=== PATIENT | female | born 1990 | race Caucasian/White ===

== ENCOUNTER 2016-10-08 10:34 | Inpatient (IN) | payer OTHER ==
[~2016-10-08] VITALS: Ht 170.2 cm; Wt 88.9 kg
[2016-10-11] MEDS ORDERED: Methylergonovine 0.2 mg/mL Inj IM PRN ×2 (07:45→22:35)
[2016-10-11] MEDS ORDERED: Hemorrhage Kit, Post Partum XX ONE ×2 (07:45→22:35)
[2016-10-11] MEDS ORDERED: Oxytocin 10 Unit/mL Inj IM PRN ×2 (07:45→22:35)
[2016-10-11] MEDS ORDERED: Carboprost 250 mCg/mL Inj IM PRN ×2 (07:45→22:35)
[2016-10-11] MEDS ORDERED: Oxytocin 30 Units/500 mL LR 30 UNITS in IV Premix 1 EACH IV PRN ×2 (07:45→22:35)
[2016-10-11] MEDS ORDERED: Sodium Chloride LOK Flush 10 mL Syringe IVFLUSH PRN ×2 (07:45→22:35)
[2016-10-11] MEDS ORDERED: Misoprostol 25 mCg/0.25 Tablet VAGINAL ONE (09:11)
[2016-10-11] MEDS: Lactated Ringer's 1,000 ML IV PRN ×2 (09:23→19:18)
[2016-10-11 09:43] LABS: Mean Corpuscular Hemoglobin 30.5 pg (27.0-35.0); Mean Corpuscular Volume 90.4 fL (81-100)
--- NOTE | 2016-10-11 14:48 | PCM.HPOB ---
Subjective Date of Service: Oct 11, 2016 Referring Provider: Admitting Physician: Jarred Moore MD Primary Care Physician: Nopcp Attending Physician: Jarred Moore MD Chief Complaint Induction of labor 41 weeks 2 days History of Present History of Present Illness patient is a 25 y.o. F presents for induction of labor at 41 weeks 2 days. Patient has past history of, Rubella non-immune vaccinate post , Rh negative given Rhogam 07/12/16, poorly controlled asthma OB History: (1), Para (0) Past Medical History Obstetrical History: patient is a 25 y.o. F presents for induction of labor at 41 weeks 2 days. Patient has past history of, Rubella non-immune vaccinate post , Rh negative given Rhogam 07/12/16, poorly controlled asthma BPP normal US single nuchal chord, placenta anterior without previa Hep C negative, HIV negative, GBS negative Rubella non immune Varicella immune Gynecologic History: history of UTI in Medical History: uncontrolled asthma Surgical History: none Hx Tobacco Use: No Hx Alcohol Use: No Hx Substance Use: No Past Family History Living Arrangement: with Family Genetic Screening/Counseling Genetic Screening/Counseling declined by pt Review of Systems Constitutional: Y: Change of appitite, Chills, Dizziness Eyes: Denies: Blurred Vision, Double Vision ENT: Denies: Ear Discharge, Ear Pain, Nasal Congestion Cardiovascular: Denies: Chest Pain, Edema Respiratory: Reports: SOB with Exertion, Wheezing, Denies: Cough, Pleuritic Chest Pain Gastrointestinal: Denies: Abdominal Pain, Epigastric pain, Heartburn, Nausea, Vomiting Genitourinary: Denies: Dysuria, Hematuria, Nocturia Musculoskeletal: Denies: Redness, Swelling Skin/Breasts: Denies: Bruising, Discharge Hematologic: Denies: Abnormal bleeding, Adenopathy Allergy Coded Allergies: No Known Allergies (Unverified , 09/27/16) Exam Vital Signs P 76 Bp 116/16 R 14 O2 98% T 98F Exam -3 station Vertex position heat tracing shows HR 130-145, early deceleration with moderate variability and mod-strong contractions, reassuring Constitutional: Well-developed, Well-nourished HEENT: Atraumatic, PERRLA, EOMI Lungs: Clear to Auscultation, Clear to Percussion Heart: Exam Unremarkable, Regular Rate/Rhythm, Normal S1, Normal S2 Abdomen: Gravid Extremities: Pulses Palpable x4, Warm, No Edema Neurological/Psychiatric: Alert, Oriented X3 Neuro: Grossly Neurologically Intact Additional Information Gong score 8 Labs/Diagnostics Labs Laboratory Tests 72 Hours Test 10/11/16 09:32 White Blood Count 10.1th/mm3 (3.8-10.1) Red Blood Count 4.46mil/mm3 (3.90-5.20) Hemoglobin 13.6g/dL (12.0-15.6) Hematocrit 40.3% (35.0-46.0) Mean Corpuscular Volume 90.4fL (81-100) Mean Corpuscular Hemoglobin 30.5pg (27.0-35.0) Mean Corpuscular Hemoglobin Concent 33.7% (32.0-37.0) Red Cell Distribution Width 14.1% (12.3-15.4) Platelet Count 175bil/L (150-400) Ultra Sound 07/30/16 Single live intrauterine Good cardiac outflow tracts visualized Single looped nuchal Placenta anterior without previa Maternal Blood Type: A Hx Rho(D) Immune Globulin: No Group B Strep Results: Negative Previous with GBS: Unknown Rubella: Non-Immune OB Intrapartum Assessment/Plan Assessment 25 y.o. F presents for induction of labor at 41 wk and two days gong score 8 dilated 5 cm 100 % effacement and -1 station. Problems: (1) Qualifiers: Weeks of gestation: 41 weeks Qualified Code: Z3A.41 - 41 weeks gestation of Plan: Gong score of 8 amenable to induction with Pitocin Start Pitocin increase per protocol Start IVF LR 100 mls/hr Order CBC, CMP, NPO Vitals Q 4 Start Tocometer immunize for rubella post Status: Acute ICD Code: Z33.1 Pain Evaluation: Adequate Pain Control Attending Statement Patient admitted for induction of labor, she is doing well this AM. Single dose of cytotec given with spontaneous rupture and dilation to 5cm. Continue expectant management, pitocin as needed. Will vaccinate w/ MMR PP, Rhogam eval DAVINA YI DO Oct 11, 2016 14:47 Daniela Topete MD Oct 13, 2016 16:26
[2016-10-11] MEDS ORDERED: Lactated Ringer's 1,000 ML IV SCH (22:31)
[2016-10-11] MEDS ORDERED: LANOlin HPA 7 Gm Ointment TOPICAL PRN (22:35)
[2016-10-11] MEDS ORDERED: oxyCODONE-Acetamin 5-325 mg Tablet PO PRN (22:35)
[2016-10-11] MEDS ORDERED: hydrOXYzine Pamoate 25 mg Capsule PO PRN (22:35)
[2016-10-11] MEDS ORDERED: Acetaminophen IV 1,000 MG in IV Premix 1 EACH IV PRN (22:35)
[2016-10-11] MEDS ORDERED: Measles-Mumps-Rubella Vaccine 0.5 mL Inj SUBQ ONE (22:35)
[2016-10-12] MEDS ORDERED: Lactated Ringer's 1,000 ML IV SCH (00:30)
[2016-10-12] MEDS ORDERED: Oxytocin 30 Units/500 mL LR 30 UNITS in IV Premix 1 EACH IV PRN ×2 (00:30→00:35)
[2016-10-12] MEDS ORDERED: Oxytocin 10 Unit/mL Inj IM PRN (00:30)
[2016-10-12] MEDS ORDERED: Methylergonovine 0.2 mg/mL Inj IM PRN (00:30)
[2016-10-12] MEDS ORDERED: oxyCODONE-Acetamin 5-325 mg Tablet PO PRN (00:30)
[2016-10-12] MEDS ORDERED: Measles-Mumps-Rubella Vaccine 0.5 mL Inj SUBQ ONE ×2 (00:30→10:30)
[2016-10-12] MEDS ORDERED: Hemorrhage Kit, Post Partum XX ONE (00:30)
[2016-10-12] MEDS ORDERED: Carboprost 250 mCg/mL Inj IM PRN (00:30)
[2016-10-12] MEDS ORDERED: Benzocaine (Dermoplast) 20% 60 Gm Spray TOPICAL PRN (00:30)
[2016-10-12] MEDS ORDERED: Witch Hazel-Glycerin Pads TOPICAL PRN (00:30)
[2016-10-12] MEDS ORDERED: LANOlin HPA 7 Gm Ointment TOPICAL PRN (00:30)
--- NOTE | 2016-10-12 00:45 | OP ---
[address] [address] OPERATIVE REPORT PATIENT: RK CROOKS : 1990 MR#: [id number] ADMIT: 10/11/2016 JOB ID: [id number] DATE OF SURGERY: 10/11/2016 PREOPERATIVE DIAGNOSIS(ES): 1. Late term . 2. History of asthma. 3. Rh negative. 4. Rubella nonimmune. POSTOPERATIVE DIAGNOSIS(ES): 1. Late term . 2. History of asthma. 3. Rh negative. 4. Rubella nonimmune. PROCEDURE: Normal vaginal delivery complicated with shoulder dystocia. SURGEON: Sekou Bess MD CONCRETE BUCKET UNLOADER: None. ESTIMATED BLOOD LOSS: 400 mL. DESCRIPTION OF PROCEDURE: This is a 25-year-old, 1 para 0, who was admitted for induction of labor at 41 weeks and 2 days gestation. Induction of labor was started with Cytotec. Cervix on admission was 1.5 cm dilated, 80% effaced, -2. The patient progressed continuously in labor and found to be 5 cm dilated, 100% effaced, -1 station, with spontaneous rupture of membranes shortly after the exam at around 1400 on October 11, 2016. Then, reassessment 2 hours later, no significant cervical change. Oxytocin was started as per protocol. The patient continued to contract and made cervical change to complete dilation at 2113 with a strong urge to push. The patient pushed effectively without epidural to deliver a female infant over an intact perineum. After delivery of the head, no nuchal cord was palpable. Then, failed to deliver the shoulders with gentle downward traction. Shoulder dystocia was recognized. Hospital Supervisor presented in the room. The patient was placed in Edna position and was asked to stop pushing. The posterior shoulder was medially rotated and an attempt to deliver the posterior arm was failed. Then, the anterior shoulder was medially rotated and with effort of maternal pushing, the anterior shoulder was delivered. Total time between head delivery and shoulder delivery was 80 seconds. Apgars were 2 at one minute and 9 at five minutes. Infant weight 8 pounds 14 ounces, equivalent to 4016 g. Cord segment was obtained for gases. Cord blood was collected for typing. Placenta was delivered spontaneously intact 9 minutes after delivery. Time of delivery was 2141. Time of placenta delivery was 2149. Perineum was examined and 1st-degree laceration was repaired with 3-0 Vicryl after injection of local anesthesia with 1% lidocaine. Right hymenal ring laceration was repaired with [id number] stitch using 3-0 Vicryl after local anesthesia. The placenta was examined and found to be intact with a 3-vessel cord. All instrument, needles and sponge counts were correct x2. By the end of the procedure, mother and were recovering in the delivery room and in stable condition. Diabetes screening during the was negative, done on July 01, 2016.
[2016-10-12] MEDS ORDERED: Ascorbic Acid 500 mg Tablet PO SCH ×2 (08:00)
--- NOTE | 2016-10-12 08:04 | PCM.DIOB ---
Obstetrical Disch Instruction Dates of Hospitalization Date of Hospital Admission Oct 11, 2016 at 06:58 Providers Admitting Physician: Jarred Moore MD Primary Care Physician: [place] Attending Physician: Jarred Moore MD Discharge Diagnosis Discharge Diagnosis Spontaneous Vaginal delivery Problems: (1) Qualifiers: Weeks of gestation: 41 weeks Qualified Code: Z3A.41 - 41 weeks gestation of Status: Acute ICD Code: Z33.1 Diet Discharge Diet: No restrictions Activity Discharge Activity-General: Pelvic Rest for 6 weeks, Try not to overdue, Balance rest and activity, No lifting >10 pounds for 4-6 weeks Dressing and Incisional Care Hygiene: May shower, NO bathtub, hot tub or whirlpool, Perineal care, Sitz bath Additional Instructions Discharge Instructions Colase 100 mg twice daily for constipation Ibuprofen 800 mg for pain twice daily May use hydrocodone 5-325 1-2 tabs every 4-6 hours for break through pain Continue vitamin Follow up in women's health clinic in 2-4 weeks If you experience depression after delivery call our office for an appointment sooner If you experience thoughts of self harm or harm to others seek emergency medical care Follow Up Plan Follow Up Plan clinic 2-4 weeks Call your provider for: Fever or Chills, Shortness of breath, Heavy vaginal bleeding, Heavy bleeding, Epigastric pain, Excessive constipation, Vaginal discomfort, Red painful breasts DAVINA YI DO Oct 12, 2016 08:04
[2016-10-12] MEDS ORDERED: OXYC1TAB24 PO (08:07)
[2016-10-12] MEDS ORDERED: Lanolin TOPICAL (08:07)
[2016-10-12] MEDS ORDERED: TUCPAD TOPICAL (08:07)
[2016-10-12] MEDS ORDERED: Benzocaine TOPICAL (08:07)
[2016-10-12] MEDS ORDERED: DOCU-41 PO (08:07)
[2016-10-12] MEDS ORDERED: IBUP-1827 PO (08:07)
[2016-10-12] MEDS ORDERED: FERR-74 PO (08:07)
--- NOTE | 2016-10-12 13:56 | PCM.DC.OB ---
Obstetrical Discharge Summary Date of Service Oct 12, 2016 Date of hospital admission Oct 11, 2016 at 06:58 Date of Discharge: Oct 12, 2016 Providers Admitting Physician: Jarred Moore MD Primary Care Physician: Delfino Attending Physician: Jarred Moore MD Diagnosis at Time of Discharge Spontaneous vaginal delivery Rubella non-immune vaccinated post , Rh negative given Rhogam , asthma Problems: (1) Qualifiers: Weeks of gestation: 41 weeks Qualified Code: Z3A.41 - 41 weeks gestation of Status: Acute ICD Code: Z33.1 (2) NVD (normal vaginal delivery) Status: Acute ICD Code: O80 Brief History and Physical: patient is a 25 y.o. F presents for induction of labor at 41 weeks 2 days. Patient has past history of, Rubella non-immune vaccinate post , Rh negative given Rhogam 07/12/16, poorly controlled asthma Exam Constitutional: Well-developed, Well-nourished HEENT: Atraumatic, PERRLA, EOMI Lungs: Clear to Auscultation, Clear to Percussion Heart: Exam Unremarkable, Regular Rate/Rhythm, Normal S1, Normal S2 Abdomen: Soft non tender, bowel sounds present Extremities: Pulses Palpable x4, Warm, No Edema Neurological/Psychiatric: Alert, Oriented X3 Neuro: Grossly Neurologically Intact Hospital Course: This is a 25-year-old, 1 para 0, who was admitted for induction of labor at 41 weeks and 2 days gestation 10/11/16. Induction of labor was started with Cytotec. The patient progressed continuously in labor, with spontaneous rupture of membranes around 1400 on October 11, 2016. Oxytocin was started as per protocol. The patient continued to contract and made cervical change to complete dilation at 2112 with a strong urge to push. Patient delivered at 2140 with complication of shoulder dystocia. Placenta was delivered spontaneously intact 9 minutes after delivery. . Patient sustained a 1st-degree laceration was repaired. Right hymenal ring laceration was repaired. At time of discharge patient was ambulating without assistance, pain well controlled, eating and drinking well, minimal lochia, denied fever, chills, nausea, vomiting. ([Benzocaine]) 1 SPRAY/GM SPRAY 1 SPRAY TOPICAL PRN PRN PRN for perineal pain Prescribed by: DAVINA YI DO ([Lanolin]) 2 APPLIC/GM OINT 1 APPLIC TOPICAL PRN PRN PRN apply to nipples Prescribed by: DAVINA YI DO Docusate Sodium (Colace) 100 Mg Capsule 100 MG PO DAILY Prescribed by: DAVINA YI DO Ferrous Sulfate (Feosol) 325 Mg Tablet 325 MG PO BIDWM Prescribed by: DAVINA YI DO Ibuprofen (Ibuprofen) 600 Mg Tablet 600 MG PO Q6H PRN PRN For Mild Pain Prescribed by: DAVINA YI DO Witch Angelika/Glycerin (A.e.r Pads) 12 Towelette/Pkg Towelette 1 PAD TOPICAL PRN PRN PRN for perineal pain Prescribed by: DAVINA YI DO oxyCODONE-Acetaminophen 5-325 mg (oxyCODONE-Acetaminophen 5-325 mg) 1 Each Tablet 1-2 TAB PO Q4H PRN PRN For Pain Prescribed by: DAVINA YI DO Disposition discharge to home Follow-up plan Colase 100 mg twice daily for constipation Ibuprofen 800 mg for pain twice daily May use hydrocodone 5-325 1-2 tabs every 4-6 hours for break through pain Continue vitamin Follow up in women's health clinic in 2-4 weeks If you experience depression after delivery call our office for an appointment sooner If you experience thoughts of self harm or harm to others seek emergency medical care Discharge Diet: No restrictions Discharge Activity-General: Pelvic Rest for 6 weeks, Pelvic Rest, Try not to overdue, No lifting >15 pounds for 2 weeks Patient instructions Colase 100 mg twice daily for constipation Ibuprofen 800 mg for pain twice daily May use hydrocodone 5-325 1-2 tabs every 4-6 hours for break through pain Continue vitamin Follow up in women's health clinic in 2-4 weeks If you experience depression after delivery call our office for an appointment sooner If you experience thoughts of self harm or harm to others seek emergency medical care DAVINA YI DO Oct 12, 2016 13:56
[2016-10-12 19:46] LABS: Mean Corpuscular Hemoglobin 30.3 pg (27.0-35.0); Mean Corpuscular Volume 92.9 fL (81-100)
[2016-10-12 21:36] VITALS: BP 105/60; PULSE 73; RESP 16
== END 2016-10-12 22:20 | disposition home or self-care (01) | DRG 775 ==
LOC: FBC 10-11 06:58
PROVIDERS: ADMIT Obstetrics & Gynecology; ATTEND Obstetrics & Gynecology
PROC: 10E0XZZ Delivery of Products of Conception, External Approach (ICD-10-PCS; principal; 2016-10-11)
PROC: 3E033VJ Introduction of Other Hormone into Peripheral Vein, Percutaneous Approach (ICD-10-PCS; 2016-10-11)
PROC: 0HQ9XZZ Repair Perineum Skin, External Approach (ICD-10-PCS; 2016-10-11)
DX: O48.0 Post-term pregnancy (principal); Z3A.41 41 weeks gestation of pregnancy; Z37.0 Single live birth; O66.0 Obstructed labor due to shoulder dystocia; O70.0 First degree perineal laceration during delivery; O77.0 Labor and delivery complicated by meconium in amniotic fluid